=== PATIENT | female | born 1980 | race Caucasian/White ===

== ENCOUNTER → 2021-09-24 13:21 | Outpatient (CLI) | payer BC, SELFPAY ==
--- NOTE | ~2021-09-24 | US_ITS ---
EXAMINATION: US pelvic complete w TV DATE: 09/24/2021 13:59 INDICATION: Abnormal uterine bleeding. TECHNIQUE: Multiple transabdominal and transvaginal sonographic images of the pelvis were obtained. COMPARISON: None. FINDINGS: TRANSABDOMINAL ULTRASOUND: The uterus is retroflexed and measures 8.8 x 4.7 x 5.3 cm. There is no free fluid in the pelvis. TRANSVAGINAL ULTRASOUND: The endometrial complex measures 5 mm in thickness. The right ovary measures 3.0 x 3.0 x 2.5 cm. Ther e is a 2.3 cm hemorrhagic cyst in right ovary. The left ovary measures 2.3 x 0.9 x 2.1 cm. There is n ormal vascular flow in the ovaries. IMPRESSION: 1. No etiology for abnormal uterine bleeding. Reviewed, dictated and finalized at location B. [facility] INSERTER
== END ==
DX: N93.9 Abnormal uterine and vaginal bleeding, unspecified (principal)
CPT/HCPCS: 76830; 76856

== ENCOUNTER → 2021-11-24 15:53 | Outpatient (CLI) | payer BC, SELFPAY ==
--- NOTE | ~2021-11-24 | US_ITS ---
EXAMINATION: US transvaginal DATE: 11/24/2021 16:19 INDICATION: Follow-up right ovarian cyst. Comparison:Ultrasound dated 09/24/2021 TECHNIQUE: Multiple endovaginal sonographic images of the pelvis performed. FINDINGS: The uterus measures 7.1 x 3.9 x 4.9 cm. The endometrial complex measures 3 mm. The right ovary measures 3.7 x 1.8 x 2.8 cm and the left ovary measures 2.1 x 1.2 x 1.7 cm. There ar e small follicles in each ovary. Normal doppler signal in both ovaries. There is no free fluid in the pelvis. There are no abnormal masses seen on either side. IMPRESSION: 1. Unremarkable pelvic ultrasound. Interval resolution of right ovarian cyst. Reviewed, dictated and finalized at location B.
== END ==
DX: N83.201 Unspecified ovarian cyst, right side (principal)
CPT/HCPCS: 76830

== ENCOUNTER → 2023-04-21 12:09 | Outpatient (CLI) | payer BC, SELFPAY ==
--- NOTE | ~2023-04-21 | MM_ITS ---
EXAMINATION: MM screening caden BI w nora HISTORY: Baseline screening mammogram TECHNIQUE: Craniocaudal and mediolateral oblique 3-D tomosynthesis images were obtained and synthetic 2-D images were generated. CAD analysis was submitted and interpreted. COMPARISON: None, baseline BREAST PARENCHYMAL COMPOSITION: There are scattered areas of fibroglandular density. FINDINGS: No suspicious mass, calcification, or architectural distortion are identified in either shay ast to suggest malignancy. IMPRESSION: 1. No mammographic evidence of malignancy. 2. Recommend routine screening mammography in one year. BI-RADS Category 1: Negative Reviewed, dictated and finalized at location A.
== END ==
PROVIDERS: PCP Family Medicine; Visit Provider Registered Nurse School
DX: Z12.31 Encounter for screening mammogram for malignant neoplasm of breast (principal)
CPT/HCPCS: 77063; 77067

== ENCOUNTER 2024-10-16 09:17 | Outpatient (CLI) | payer BC, SELFPAY ==
--- NOTE | ~2024-10-16 | MM_ITS ---
EXAMINATION: MM screening caden BI w nora HISTORY: Screening TECHNIQUE: Craniocaudal and mediolateral oblique 3-D tomosynthesis images were obtained and synthetic 2-D images were generated. CAD analysis was submitted and interpreted. COMPARISON: 04/21/2023 BREAST PARENCHYMAL COMPOSITION: Not dense: There are scattered areas of fibroglandular density. FINDINGS: There is no evidence of suspicious mass, calcification, or architectural distortion to sugg est malignancy in either breast. There has been no suspicious interval change. IMPRESSION: 1. No mammographic evidence of malignancy. 2. Recommend routine screening mammography in one year. BI-RADS Category 1: Negative Reviewed, dictated and finalized at location B. INE SHOP REPAIR TECHNICIAN
--- OUTSIDE RECORDS SUMMARY | 2024-10-16 09:53 | XMS_ITS | Clinical Summary ---
Author Organization [facility] Address [address] [place] [address]. [place] [address] [place] [address] Care Team Providers Care Toolroom Clerk Name Role Phone Dane Greene MD Primary Care Provider [phone] Allergies Active Allergy Reactions Criticality Noted Date Comments Amoxicillin Unknown 05/11/2018 Medications SLYND 4 MG Tab 04/27/2022 Acti ve naproxen (NAPROSYN) 500 MG tabletIndications :Acute right-sided low back pain without sciatica Take 1 tablet (500 mg total) by mouth 2 (two) times daily with meals. 180 tablet 3 03/14/2024 03/14/20 25 Active lisinopril (PRINIVIL) 20 MG tabletIndications :Primary hypertension Take 1 tablet (20 mg total) by mouth daily. 90 tablet 3 08/22/2024 08/22/20 25 Active cyclobenzaprine (FLEXERIL) 10 MG tabletIndications :Acute bilateral low back pain without sciatica Take 1 tablet (10 mg total) by mouth 3 (three) times daily as needed. 60 tablet 1 08/30/2024 Active Active Problems Problem Noted Date Diagnosed Date Primary hypertension 12/30/2021 Plantar fasciitis, bilateral 07/05/2019 Gastroesophageal reflux disease without esophagi tis 05/11/2018 Resolved Problems Problem Noted Date Diagnosed Date Resolved Date Atypical pneumonia 06/29/2018 0 Impingement syndrome of shoulder 05/11/2018 05/04/2022 TFCC (triangular fibrocartil age complex) injury 05/11/2018 04/30/2020 Encounter for preventive health examination 04/24/2018 04/30/2020 Encounters Date Type Department Care Team Description 09/18/2024 Telephone [facility] [address], [address] [place] [phone] Dane Greene MD Problem 09/10/2024 Telephone [facility] [address], [address] [place] [phone] Dane Greene MD Lab Results (Vitamin D, C-reactive, Dhea sulfate, Cortisol total, TSH, Uric acid, CK, Protein elecrophoresis, CBC, BMP) 08/30/2024 1:00 PM SECOND BUTLER Office Visit [facility] [address], [address] [place] [phone] Dane Greene MD Back Pain (Pt stated that she was bending over to put a bag in the trash can on Tuesday after and she felt her back tense up. She's having gait difficulty, and went to see her Chiropractor. She also notice that most of her joints feel inflamed . ) 08/30/2024 Travel from Last 3 Months Immunizations Name Administration Dates Next Due Dtp 01/03/1986, 2,06/17/1981,1980,02/11/1981 Influenza Adult (Generic) 05/18/2023,05/19/2022, 05/20/2021 MMR 01/24/1991,04/17/1982 Opv 01/03/1986, 2,06/17/1981,1980,02/11/1981 PFIZER COVID-19 (ORTEZ CAP), MRNA, LNP-S, PF, 30 MCG/0.3 ML ORIN-SUCROSE, IM 12/30/2021 PFIZER COVID-19 (ORIGINAL FORMULATION, PURPLE CAP) mRNA, LNP-S, PF, 30 MCG/0.3 ML DOSE 12/28/2020,12/07/2020 Td (Tenivac) preservative free 04/30/2020 Td, Adsorbed, Preservative F ree, Adult Use, Lf Unspecified 04/30/2020 Tdap (Generic) 01/29/2010 Tetanus/Diptheria 04/22/1995 Family History Medical History Relation Comments Hypertension Mother Diabetes Other Relation Status Comments Mother Other Social History Tobacco Use Types Packs/Day Years Used Date Smoking Tobacco: Never Passive Smoke Exposure: Never Smokeless Tobacco: Never Tobacco Cessation:Counseling Given: No Alcohol Use Standard Drinks/Week Comments Not Currently 0 (1 standard drink = 0.6 oz pur e alcohol) socially PHQ-2 Answer Date Recorded Patient Health Questionnaire-2 Score 0 08/30/2024 Comments No Sex and Gender Information Value Date Recorded Sex Assigned at Not on file Legal Sex Female 5:29 PM CDT Gender Identity Not on file Sexual Orientation Not on file Last Filed Vital Signs Vital Sign Reading Time Taken Comments Blood Pressure 120/72 08/30/2024 1:04 PM SECOND BUTLER Pulse 86 08/30/2024 1:04 PM SECOND BUTLER Temperature 36.4 ??C (97.6 ??F) 08/30/2024 1:04 PM CS T Respiratory Rate 16 08/30/2024 1:04 PM SECOND BUTLER Oxygen Saturation 99% 08/30/2024 1:04 PM SECOND BUTLER Inhaled Oxygen Concentration - - Weight 74.8 kg (165 lb) 08/30/2024 1:04 PM SECOND BUTLER Height 160 cm (5' 3 ) 08/30/2024 1:04 PM SECOND BUTLER Body Mass Index 29.23 08/30/2024 1:04 PM SECOND BUTLER Plan of Treatment Health Maintenance Due Date Last Done Comments Hepatitis B Vaccines (1 of 3 - 19+ 3-dose series) 12/24/1999 Cervical Cancer Screening Pap Smear (Age 30 to 64) Every 3 Years 03/12/2021 03/12/2018 COVID-19 Vaccine ( season) 2024 12/30/2021, 12/28/2020, 12/07/2020 Influenza Adult (#1) 2024 05/18/2023, 05/19/2022, 05/20/2021 PHQ-2 (Physician [place]) 09/12/2024 08/30/2024 Annual Physical 03/14/2025 03/14/2024, 05/13, 05/04/2022, Additional history exists Mammogram Screening 04/21/2025 04/21/2023 Cervical Cancer Screening Pap with HPV Testing (Age 30 to 64) Every 5 Years 05/14/2027 05/14/2022 Cervical Cancer Screening with HPV 05/14/2027 DTaP, Tdap and Td Vaccines (5 - Td or Tdap) 04/30/2030 04/30/2020, 04/30/2020, 01/29/2010, Additional history exists Hepatitis C Completed 03/14/2024 HPV Vaccines Aged Out No longer eligi ble based on patient's age to complete this topic Meningococcal B Vaccine Aged Out No l onger eligible based on patient's age to complete this topic Meningococcal Vaccine Aged Out No jethro gertrude eligible based on patient's age to complete this topic Pneumococcal Vaccine: Pediatrics (0 to 5 Years) and At-Risk Patients (6 to 64 Years) Aged Out No longer eligible based on patient's age to complete this topic RSV Immunizations Under 20 Months Aged Out No longer eligible based on patient's age to complete this topic Procedures Procedure Name Priority Date/Time Associated Diagnosis Comments VITAMIN D, 25 OH Routine 09/01/2024 9:48 AM SECOND BUTLER URIC ACID BLOOD Routine 09/01/2024 9:48 AM SECOND BUTLER Primary hypertension Arthralgia, unspecified joint Myalgia Generalized abdominal pain Overweight Gastroesophageal reflux disease without esophagitis Acute bilateral low back pain without sciatica Vitamin D deficiency IRON SAT PANEL (IRON,IBC,%SAT) Routine 09/01/2024 9:48 AM SECOND BUTLER Primary hypertension Arthralgia, unspecified joint Myalgia Generalized abdominal pain Overweight Gastroesophageal reflux disease without esophagitis Acute bilateral low back pain without sciatica Vitamin D deficiency PROTEIN, ELECTROPHORESIS Routine 09/01/2024 9:48 AM SECOND BUTLER Primary hypertension Arthralgia, unspecified joint Myalgia Generalized abdominal pain Overweight Gastroesophageal reflux disease without esophagitis Acute bilateral low back pain without sciatica Vitamin D deficiency TSH W/REFLEX Routine 09/01/2024 9:48 AM SECOND BUTLER Primary hypertension Arthralgia, unspecified joint Myalgia Generalized abdominal pain Overweight Gastroesophageal reflux disease without esophagitis Acute bilateral low back pain without sciatica Vitamin D deficiency SED RATE, ERYTHROCYTE (ESR) Routine 09/01/2024 9:48 AM SECOND BUTLER Primary hypertension Arthralgia, unspecified joint Myalgia Generalized abdominal pain Overweight Gastroesophageal reflux disease without esophagitis Acute bilateral low back pain without sciatica Vitamin D deficiency RHEUMATOID FACTOR, QUANT Routine 09/01/2024 9:48 AM SECOND BUTLER Primary hypertension Arthralgia, unspecified joint Myalgia Generalized abdominal pain Overweight Gastroesophageal reflux disease without esophagitis Acute bilateral low back pain without sciatica Vitamin D deficiency ANTINUCLEAR ANTIBODY WI RFX Routine 09/01/2024 9:48 AM SECOND BUTLER Primary hypertension Arthralgia, unspecified joint Myalgia Generalized abdominal pain Overweight Gastroesophageal reflux disease without esophagitis Acute bilateral low back pain without sciatica Vitamin D deficiency BASIC METABOLIC PANEL Routine 09/01/2024 9:48 AM SECOND BUTLER Primary hypertension Arthralgia, unspecified joint Myalgia Generalized abdominal pain Overweight Gastroesophageal reflux disease without esophagitis Acute bilateral low back pain without sciatica Vitamin D deficiency CBC W/DIFF AUTOMATED Routine 09/01/2024 9:48 AM SECOND BUTLER Primary hypertension Arthralgia, unspecified joint Myalgia Generalized abdominal pain Overweight Gastroesophageal reflux disease without esophagitis Acute bilateral low back pain without sciatica Vitamin D deficiency CK (CPK) Routine 09/01/2024 9:48 AM SECOND BUTLER Primary hypertension Arthralgia, unspecified joint Myalgia Generalized abdominal pain Overweight Gastroesophageal reflux disease without esophagitis Acute bilateral low back pain without sciatica Vitamin D deficiency DHEA-SULFATE Routine 09/01/2024 9:48 AM SECOND BUTLER Primary hypertension Arthralgia, unspecified joint Myalgia Generalized abdominal pain Overweight Gastroesophageal reflux disease without esophagitis Acute bilateral low back pain without sciatica Vitamin D deficiency C-REACTIVE PROTEIN Routine 09/01/2024 9: 48 AM SECOND BUTLER Primary hypertension Arthralgia, unspecified joint Myalgia Generalized abdominal pain Overweight Gastroesophageal reflux disease without esophagitis Acute bilateral low back pain without sciatica Vitamin D deficiency CORTISOL, TOTAL Routine 09/01/2024 9:48 AM SECOND BUTLER Primary hypertension Arthralgia, unspecified joint Myalgia Generalized abdominal pain Overweight Gastroesophageal reflux disease without esophagitis Acute bilateral low back pain without sciatica Vitamin D deficiency HEPATITIS C ANTIBODY W/RFX TO HCV RNA Routine 03/14/2024 10:25 AM CDT Healthcare maintenance Primary hypertension Acute right-sided low back pain without sciatica Lumbar radiculopathy Screening for diabetes mellitus Screening cholesterol level Screening for diabetes mellitus (DM) Need for hepatitis C screening test MAMMOGRAM GENERIC (SCAN ORDER) 04/21/2023 OUTSIDE CYTOPATH CERV/VAG INTERPRET (PAP) 05/14/2022 CYTOPATH CERV/VAG THIN LAYER Routine 03/12/2018 12:00 AM CDT from Last 3 Months or Most Recently Relevant to Health Maintenance Results * TSH W/REFLEX (09/01/2024 9:48 AM SECOND BUTLER) TSH 0.97 mIU/L [employer] [facility] Comment: ?Reference Range ?> or = 20 Years ??0.40-4.50 ? Ranges ?First trimester ?0.26-2.66 ?Second trimester ?? 0.55-2.73 ?Third trimester ?0.43-2.91 09/01/2024 9:48 AM SECOND BUTLER 09/01/2024 9:50 AM SECOND BUTLER Narrative [facility] [place] [facility] - 09/08/2024 9:35 PM SECOND BUTLER FASTING:YES FASTING: YES Resulting Agency Comment Performing Organization Information: ?Site ID: [place] ?Name: [facility] ?Address: [address] [phone] ?Director: Iraj Hooker MD Dane Greene MD LABORATORY Final Result [facility] [place] [facility] [facility] [address] [address], [place] * ANTINUCLEAR ANTIBODY WI RFX (09/01/2024 9:48 AM SECOND BUTLER) HERLINDA COMMENT NEGATIVE NEGATIVE [facility] [facility] Comment: A negative HERLINDA Multiplex indicates the absence of detectable antibodies to component analytes consisting of double stranded DNA (dsDNA), chromatin, ribonucleoprotein (HELP DESK ASSOCIATE), Melton/HELP DESK ASSOCIATE (Sm/HELP DESK ASSOCIATE), Melton (Sm), SS-A, SS-B, Yolie-1, centromere B, Scl-70 and ribosomal P. A negative result should be interpreted in the context of the clinical and laboratory findings and does not rule out autoimmune disease characterized by other autoantibody specificities such as rheumatoid arthritis, autoimmune hepatitis, primary biliary cirrhosis, autoimmune thyroiditis, Mckean's disease, pernicious anemia, autoimmune neuropathies, vasculitis, celiac disease, and bullous disease. For additional information, please refer to http://education.[employer]/faq/FKF972 (This link is being provided for informational/ educational purposes only.) ?? 09/01/2024 9:48 AM SECOND BUTLER 09/01/2024 9:50 AM SECOND BUTLER Narrative [facility] [place] [facility] - 09/08/2024 9:35 PM SECOND BUTLER FASTING:YES FASTING: YES Resulting Agency Comment Performing Organization Information: ?Site ID: [place] ?Name: [facility] ?Address: [address] [address] ?Director: Iraj Hooker MD Dane Greene MD LABORATORY Final Result Performing Organization Address [facility]/ZIP Co de Phone Number [facility] [place] [facility] [employer] [facility] [address] [place] [address], * RHEUMATOID FACTOR, QUANT (09/01/2024 9:48 AM SECOND BUTLER) RHEUMATOID FACTOR <10 <14 IU/mL [facility] 09/01/2024 9:48 AM SECOND BUTLER 09/01/2024 9:50 AM SECOND BUTLER Narrative [facility] [place] [facility] - 09/08/2024 9:35 PM SECOND BUTLER FASTING:YES FASTING: YES Resulting Agency Comment Performing Organization Information: ?Site ID: [place] ?Name: [facility] ?Address: [address] [place], [place] [address] [address] ?Director: Iraj Hooker MD Dane Greene MD LABORATORY Final Result Performing Organization Address City/[facility] Co de Phone Number [facility] [place] [employer] [facility] [address] [facility] [place] [place] [address], * (ABNORMAL) IRON SAT PANEL (IRON,IBC,%SAT) (09/01/2024 9:48 AM SECOND BUTLER) Pathologist [facility] IRON 71 40 - 190 mcg/dL [facility] IRON BINDING CAPACITY 246(L) 250 - 450 mcg/dL (calc) [facility] % IRON SATURATION 29 16 - 45 % (calc) [facility] 09/01/2024 9:48 AM SECOND BUTLER 09/01/2024 9:50 AM SECOND BUTLER Narrative [facility] [facility] [place] - 09/08/2024 9:35 PM SECOND BUTLER FASTING:YES FASTING: YES Resulting Agency Comment Performing Organization Information: ?Site ID: [place] ?Name: [facility] ?Address: [address] [place], [place] [address] [address] ?Director: Iraj Hooker MD Dane Greene MD LABORATORY Final Result Performing Organization Address City/[facility] Co de Phone Number [facility] [place] [facility] [employer] [facility] [address] [facility] [place] [place] [address], * CORTISOL, TOTAL (09/01/2024 9:48 AM SECOND BUTLER) CORTISOL 11.3 mcg/dL [facility] Comment: Reference Range: For 8 a.m.(7-9 a.m.) Specimen: 4.0-22.0 Reference Range: For 4 p.m.(3-5 p.m.) Specimen: 3.0-17.0 ??* Please interpret above results accordingly * 09/01/2024 9:48 AM SECOND BUTLER 09/01/2024 9:50 AM SECOND BUTLER Narrative [facility] [place] [facility] - 09/08/2024 9:35 PM SECOND BUTLER FASTING:YES FASTING: YES Resulting Agency Comment Performing Organization Information: ?Site ID: [place] ?Name: [facility] ?Address: [address] [place], [place] [address] [address] ?Director: Iraj Hooker MD Dane Greene MD LABORATORY Final Result Performing Organization Address [facility] de Phone Number [employer] [place] [place] [employer] [facility] [id number] [place] [address] [place] [address] * SED RATE, ERYTHROCYTE (ESR) (09/01/2024 9:48 AM SECOND BUTLER) Pathologist [facility] SED RATE 14 < OR = 20 mm/h [facility] 09/01/2024 9:48 AM SECOND [facility]LER 09/01/2024 9:50 AM SECOND BUTLER Narrative [facility] [place] [facility] - 09/08/2024 9:35 PM SECOND BUTLER FASTING:YES FASTING: YES Resulting Agency Comment Performing Organization Information: ?Site ID: [place] ?Name: [facility] ?Address: [address] [place], [place] [address] [place] [address] ?Director: Iraj Hooker MD Dane Greene MD LABORATORY Final Result Performing Organization Address [facility] de Phone Number [employer] [facility] [employer] [facility] [address] [place] [address] * BASIC METABOLIC PANEL (09/01/2024 9:48 AM SECOND BUTLER) GLUCOSE 83 65 - 99 mg/dL [facility] Comment: ? Fasting reference interval BUN 14 7 - 25 mg/dL [facility] CREATININE S/P/B 0.61 0.50 - 0.99 mg/dL [facility] GFR ESTIMATE 114 > OR = 60 mL/min/1. 73m2 [facility] BUN CREATININE RATIO SEE NOTE: (calc) [facility] Comment: ?? Not Reported: BUN and Creatinine are within ?? reference range. ? SODIUM S/P/B 139 135 - 146 mmol/L [facility] POTASSIUM S/P/B 4.1 3.5 - 5.3 mmol/L [facility] CHLORIDE S/P/B 106 98 - 110 mmol/L [facility] CO2 25 20 - 32 mmol/L [employer] [facility] CALCIUM S/P/B 8.8 8.6 - 10.2 mg/dL [facility] 09/01/2024 9:48 AM SECOND BUTLER 09/01/2024 9:50 AM SECOND BUTLER Narrative [facility] [facility] [place] - 09/08/2024 9:35 PM SECOND BUTLER FASTING:YES FASTING: YES Resulting Agency Comment Performing Organization Information: ?Site ID: [place] ?Name: [facility] ?Address: [address] [place] [address] ?Director: Iraj Hooker MD us Dane Greene MD LABORATORY Final Result [facility] - [place] [facility] [address] [place], [place] [address] * DHEA-SULFATE (09/01/2024 9:48 AM SECOND BUTLER) DHEA SULFATE 189 15 - 205 mcg/dL [facility] 09/01/2024 9:48 AM SECOND BUTLER 09/01/2024 9:50 AM SECOND BUTLER Narrative [facility] [employer] [facility] [place] - 09/08/2024 9:35 PM SECOND BUTLER FASTING:YES FASTING: YES Resulting Agency Comment Performing Organization Information: ?Site ID: [place] ?Name: [facility] ?Address: [facility] [place] [address] ?Director: Iraj Hooker MD Dane Greene MD LABORATORY Final Result Performing Organization Address [facility] de Phone Number [facility] [place] [employer] [facility] [address] [place], [place] [id number] [place] [address] * C-REACTIVE PROTEIN (09/01/2024 9:48 AM SECOND BUTLER) Pathologist [facility] C-REACTIVE PROTEIN 7.7 <8.0 mg/L [facility] 09/01/2024 9:48 AM SECOND BUTLER 09/01/2024 9:50 AM SECOND BUTLER Narrative [facility] - 09/08/2024 9:35 PM SECOND BUTLER FASTING:YES FASTING: YES Resulting Agency Comment Performing Organization Information: ?Site ID: [place] ?Name: [facility] ?Address: [facility] [place] [address] ?Director: Iraj Hooker MD Dane Greene MD LABORATORY Final Result Performing Organization Address [facility] de Phone Number [employer] [place] [employer] [facility] [address] [place], [place] [id number] [place] [address] * (ABNORMAL) CBC W/DIFF AUTOMATED (09/01/2024 9:48 AM SECOND BUTLER) Pathologist [facility] WBC 6.1 3.8 - 10.8 Thousand/u L [employer] [facility] RBC 4.26 3.80 - 5.10 Million/uL [facility] [facility] HGB 13.1 11.7 - 15.5 g/dL [employer] [facility] HCT 39.8 35.0 - 45.0 % [employer] [facility] [place] MCV 93.4 80.0 - 100.0 fL [employer] [facility] MCH 30.8 27.0 - 33.0 pg [employer] [facility] MCHC 32.9 32.0 - 36.0 g/dL [facility] [place] Comment: For adults, a slight decrease in the calculated MCHC value (in the range of 30 to 32 g/dL) is most likely not clinically significant; however, it should be interpreted with caution in correlation with other red cell parameters and the patient's clinical condition. RDW 11.7 11.0 - 15.0 % [facility] PLT 189 140 - 400 Thousand/u L [employer] [facility] MPV 11.2 7.5 - 12.5 fL [facility] ABS. NEUTROPHILS 3,697 1,500 - 7,800 cells/uL [facility] ABS. LYMPHOCYTES 1,525 850 - 3,900 cells/uL [facility] ABS. MONOCYTES 299 200 - 950 cells/uL [facility] ABS. EOSINOPHILS 561(H) 15 - 500 cells/uL [facility] ABS. BASOPHILS 18 0 - 200 cells/uL [employer] [facility] SEG NEUTROPHILS 60.6 % [facility] LYMPHOCYTES 25.0 % [employer] [facility] MONOCYTES 4.9 % [employer] [facility] EOSINOPHILS 9.2 % [employer] [facility] BASOPHILS 0.3 % [employer] [facility] 09/01/2024 9:48 AM SECOND BUTLER 09/01/2024 9:50 AM SECOND BUTLER Narrative [employer] [place] - 09/08/2024 9:35 PM SECOND BUTLER FASTING:YES FASTING: YES Resulting Agency Comment Performing Organization Information: ?Site ID: [place] ?Name: [facility] ?Address: [address] [place] [address] ?Director: Iraj Hooker MD us Dane Greene MD LABORATORY Final Result [facility] [facility] [place] [employer] [facility] [address] [place] [address], [place] * (ABNORMAL) PROTEIN, ELECTROPHORESIS (09/01/2024 9:48 AM SECOND BUTLER) TOTAL PROTEIN S/P/B 6.1 6.1 - 8.1 g/dL [employer] [facility] ALBUMIN ELECTROPHORESIS S/P/B 3.9 3.8 - 4.8 g/dL [facility] [id number] S/P/B 0.3 0.2 - 0.3 g/dL [facility] [id number] S/P/B 0.7 0.5 - 0.9 g/dL [facility] BETA 1 GLOBULIN S/P/B 0.4 0.4 - 0.6 g/dL [facility] BETA 2 GLOBULIN S/P/B 0.3 0.2 - 0.5 g/dL [facility] GAMMA GLOBULIN S/P/B 0.6(L) 0.8 - 1.7 g/dL [facility] INTERPRETATION [facility] Comment: Hypogammaglobulinemia may be seen in early or evolving lymphoproliferative disorders, acquired or congenital immune deficiencies, immunosuppressive therapy and light chain disease. Consider urine protein electrophoresis, urine immunofixation and/or free light chains if clinically indicated. 09/01/2024 9:48 AM SECOND BUTLER 09/01/2024 9:50 AM SECOND BUTLER Narrative [facility] - 09/08/2024 9:35 PM SECOND BUTLER FASTING:YES FASTING: YES Resulting Agency Comment Performing Organization Information: ?Site ID: [place] ?Name: [facility] ?Address: [address] [address] ?Director: Iraj Hooker MD Dane Greene MD LABORATORY Final Result [facility] [place] [address] [address], * VITAMIN D, 25 OH (09/01/2024 9:48 AM SECOND BUTLER) VITAMIN D 25 HYDROXY TOTAL S/P/B 34.9 >29.9 ng/mL [facility] Comment: This test was developed and its analytical performance characteristics have been determined by [facility] at [facility]. It has not been cleared or approved by the U.S. Food and Drug Administration. This assay has been validated pursuant to the CLIA regulations and is used for clinical purposes. Vitamin D, 25-Hydroxy reports concentrations of two common forms, 25-OHD2 and 25-OHD3. 25-OHD3 indicates both endogenous production and supplementation. 25-OHD2 is an indicator of exogenous sources, such as diet or supplementation. Therapy is based on measurement of Total 25-OHD, with levels <20 ng/mL indicative of Vitamin D deficiency, while levels between 20 ng/mL and 30 ng/mL suggest insufficiency. Optimal levels are >=30 ng/mL. Vitamin D, 25-Hydroxy reports concentrations of two common forms, 25-OHD2 and 25-OHD3. 25-OHD3 indicates both endogenous production and supplementation. 25-OHD2 is an indicator of exogenous sources, such as diet or supplementation. Therapy is based on measurement of Total 25-OHD, with levels <20 ng/mL indicative of Vitamin D deficiency, while levels between 20 ng/mL and 30 ng/mL suggest insufficiency. Optimal levels are > or = 30 ng/mL. VITAMIN D 25 HYDROXY D3 S/P/B 34.9 ng/mL [id number] Comment: This test was developed and its analytical performance characteristics have been determined by [employer]. It has not been cleared or approved by the FDA. This assay has been validated pursuant to the CLIA regulations and is used for clinical purposes. VITAMIN D 25 HYDROXY D2 S/P/B <1.0 ng/mL [facility] Comment: This test was developed and its analytical performance characteristics have been determined by [employer]. It has not been cleared or approved by the FDA. This assay has been validated pursuant to the CLIA regulations and is used for clinical purposes. 09/01/2024 9:48 AM SECOND BUTLER 09/01/2024 9:50 AM SECOND BUTLER Narrative [facility] - IR[place] ORDERS - 09/08/2024 9:35 PM SECOND BUTLER FASTING:YES FASTING: YES Resulting Agency Comment Performing Organization Information: ?Site ID: [id number] ?Name: [employer] ?Address: [address] [place] [address], [address] [place] [address] ?Director: Thomas Fernandes PhD,[facility] Dane Greene MD LABORATORY Final Result [employer] - [place] ORDERS [facility] [address], [address] [place] [address], [place] * CK (CPK) (09/01/2024 9:48 AM SECOND BUTLER) TOTAL CK 45 29 - 143 U/L [facility] 09/01/2024 9:48 AM SECOND BUTLER 09/01/2024 9:50 AM SECOND BUTLER Narrative [facility] - [place] ORDERS - 09/08/2024 9:35 PM SECOND BUTLER FASTING:YES FASTING: YES Resulting Agency Comment Performing Organization Information: ?Site ID: [id number] ?Name: [employer] ?Address: [address] [place], [place] [address] [address] ?Director: Iraj Hooker MD Dane Greene MD LABORATORY Final Result Performing Organization Address [facility] de Phone Number [employer] - IRIS MARYA [employer] [facility] [id number] [place] [address] [place] [address], * URIC ACID BLOOD (09/01/2024 9:48 AM SECOND BUTLER) Pathologist [facility] URIC ACID 3.5 2.5 - 7.0 mg/dL [facility] [employer] [facility] Comment: Therapeutic target for gout patients: <6.0 mg/dL ?? 09/01/2024 9:48 AM SECOND BUTLER 09/01/2024 9:50 AM SECOND BUTLER Narrative [facility] [facility] - [place] ORDERS - 09/08/2024 9:35 PM SECOND BUTLER FASTING:YES FASTING: YES Resulting Agency Comment Performing Organization Information: ?Site ID: [id number] ?Name: [employer] ?Address: [address] [place], [place] [address] [place] [address] ?Director: Iraj Hooker MD Dane Greene MD LABORATORY Final Result Performing Organization Address [facility]/ZIP Co de Phone Number [facility] - [facility] [employer] [facility] [address] [place] [address], [place] * HEPATITIS C ANTIBODY W/RFX TO HCV RNA (03/14/2024 10:25 AM CDT) HEPATITIS C AB NON-REACT MAXIMILIAN NON-REACT MAXIMILIAN [employer] [facility] Comment: HCV antibody was non-reactive. There is no laboratory evidence of HCV infection. In most cases, no further action is required. However, if recent HCV exposure is suspected, a test for HCV RNA (test code 90678) is suggested. For additional information please refer to http://education.VSporto/faq/WQG50k4 (This link is being provided for informational/ educational purposes only.) 03/14/2024 10:2 5 AM CDT 03/14/2024 10:27 AM CDT Narrative [employer] - [place] ORDERS - 03/16/2024 3:05 PM CDT FASTING:YES FASTING: YES Resulting Agency Comment Performing Organization Information: ?Site ID: [id number] ?Name: [facility] ?Address: [address] [place] [address] ?Director: Iraj Hooker MD Dane Greene MD LABORATORY Final Result [facility] - IRIS MARYA [employer] [facility] [id number] [place] [address], [place] * MAMMOGRAM GENERIC (04/21/2023) Anatomical Region Laterality Modality Other 04/21/2023 [facility] Scanned SCANNING Final Resu lt * PAP SMEAR WITH HPV (05/14/2022) 05/14/2022 Narrative 05/14/2022 Ordered by an unspecified provider. us Documents Scanned SCANNING Final Result * Cytopath Cerv/Vag Thin Layer (03/12/2018 12:00 AM CDT) PAP SMEAR Normal per patient [facility] TO EPIC CONVERSION 03/12/2018 03/12/2018 us Generic Conversion Md [facility] PATH[facility]/CYTOLOGY JEN TURNER Final Result [facility] TO EPIC CONVERSION from Last 3 Months or Most Recently Relevant to Health Maintenance Insurance [facility] Care Teams Toolroom Clerk Relationship Specialty Start Date End Date Dane Greene MD [address] [facility] [address] [place] [address] PCP - General FAMILY PRACTICE 05/11/18
--- OUTSIDE RECORDS SUMMARY | 2024-10-16 09:53 | XMS_ITS | Encounter Summary ---
Author Organization [facility] Address [address] [place] [address]. [place] [address] [place] [address] Care Team Providers Care Barrel Washer Name Role Phone Dane Greene MD Primary Care Provider [phone] Encounter Details Date Type Department Care Team (Late st Contact Info) Description 11/22/2022 MyCSiastot Message Enc [facility] Family Medicine - [place] [address] [facility], [address] [place] [phone] Dane Greene MD [address] [facility] [address] [place], [place] [id number] Marnie Kat - Schedule appointment or virtual appointment Social History Tobacco Use Types Packs/Day Years Used Date Smoking Tobacco: Never Smokeless Tobacco: Never Alcohol Use Standard Drinks/Week Comments Yes 0 (1 standard drink = 0.6 oz pur e alcohol) socially PHQ-2 Answer Date Recorded Patient Health Questionnaire-2 Score 0 11/22/2022 Comments No Sex and Gender Information Value Date Recorded Sex Assigned at Not on file Legal Sex Female 5:29 PM CDT Gender Identity Not on file Sexual Orientation Not on file COVID-19 Exposure Response Date Recorded In the last 10 days, have yo u been in contact with someone who was confirmed or suspected to have Coronavirus/COVID-19? No / Unsure 11/22/2022 1:13 PM CDT documented as of this encounter Plan of Treatment Not on file documented as of this encounter Visit Diagnoses Not on filedocumented in this encounter Additional Health Concerns Infection Onset Date Last Indicated Resolved Time COVID-19 Rule Out 03/22/2023 03/22/2023 03/22/2023 10:54 AM CDT Assessment Noted Time PHQ-9 Depression Total Score: 0 04/28/20 1:20 PM CDT documented as of this encounter Care Teams Barrel Washer Relationship Specialty Start Date End Date Dane Greene MD [address] [address] PCP - General FAMILY PRACTICE 05/11/18 documented as of this encounter
--- OUTSIDE RECORDS SUMMARY | 2024-10-16 09:53 | XMS_ITS | Continuity of Care Document ---
Author Organization [facility] Address [address] [address] Phone Care Team Providers Care Acid Cleaner Name Role Phone Cedrick Gerardo MD Unavailable Unavailable Allergies, Adverse Reactions, Alerts Substance Reaction Status Criticality amoxicillin Swelling Active No Information Medications Medication Instructions Dosage Effective Dates (start - stop) Status Comments mometasone 0.1 % topical ointment apply by topical route every day a thin layer to the affected area(s) for red/itchy skin on body Not Available - Active lisinopril 20 mg tablet take as directed - Active Slynd 4 mg (28) tablet take as directed - Active cyclobenzaprine 10 mg tablet take as directed - No Longer Active naproxen 500 mg tablet take as directed - No Longer Active Procedures Procedure Date Perc Test New (Level 4) OFFICE/OUTPATIENT VISIT KARATE TEACHER Registration Fee Advance Directives Directive Yes / No Effective Date File Name No Information Encounters Encounter Description Practice Location Reason(s) For Visit Diagnoses Date Provider Providers Copied on Encounter New (Level 4) OFFICE/OUTPA TIENT VISIT [facility], [address] [place] [address], [place], [place], [id number], [place] tel:[phone] [facility] abnormal labs (chief complaint) Body mass index (BMI) 29.0-29.9, adultEosinophili aAtopic dermatitisChest pain, unspecifiedPain in unspecified jointDrug reaction, initial encounter [address], [place], [address], [place]. tel:[phone] Referring Provider: Rachael Drake, [place], [address]. tel:[phone] [facility], [address] [place] [address], [id number], tel:[phone] [facility] No Information [address], [place], [address], [place]. tel:[phone] Referring Provider: Dane Greene, Rachael Bosch, [place], [address]. tel:[phone] [facility], [address] [place] [address], [id number], tel:[phone] [facility] Location No Information [facility] Prov. . Referring Provider: Rachael Drake, [place], [address]. tel:[phone] Family History Family Member Type Diagnosis Age At Onset Problem No family history of Asthma Mother Problem Rheumatoid arthritis Maternal grandmother Problem Rheumatoid arthritis Problem No family histor y of Systemic lupus erythematosus Sister Problem Rhinitis Payers Payer name Insurance type Covered republican ID Kirit breaux(s) [facility] [id number] Social History Type Description Quantity Date Captured Comments Alcohol Use Details Unknown Caffeine Use Details Unknown Tobacco Use Status No Information Smoking Status Never smoker Occupat ion: [employer] (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 Percentile Wt./Johnny. Percentile BMI percentile Pulse Ox Inhaled Ox 9:35 AM 64.00 in 77.111 kg (170.00 lbs) 29.1 8 kg/m eter (2) 94 /min 120/66 mm[Hg] 98.00 F 1.87 meter(2) 99 % Chief Complaint And Reason For Visit From encounter dated '09/27/2024 09:40'. abnormal labs (chief complaint). Description: Elevated Eosinophil CountThe patient reports “joint inflammation.? She reports elbow and knee swelling and stiffness. She has also had shoulder stiffness. These symptoms seem to be associated with panic attacks. She does not follow with anybody for these attacks.She reports having chest pains often. She also reports night sweats and nausea. No vomiting. She felt disoriented. She reports these occurred about 2 weeks ago after “throwing her back out.? This prompted the lab check. She was treated with steroids after this (completed course on 09/11/24). After 4 days on treatment, she felt back to normal. She denies no international travel in > 10 years. She reports mild rhinitis symptoms that have perhaps worsened as she has gotten older. She does not routinely use medications. She notes using albuterol with bronchitis (last episode 2022). She does have a history of eczema, which occurs on the nape of her neck. It worsens in the summer. It is patchy, itchy, and swollen. She has treated with HCT1% ointment with some improvement. She does moisturize with a lotion. She notes worsening rash after using hyaluronic acid. PMH: HTN (on ACEi), GERD (not on meds)PSH: section x 2, L shouldersurgeryMedication Allergies: Amoxicillin (PCN) - She reports leg swelling in childhood (believes she was 10 years old). She also had pruritus. She does not recall having any other symptoms.*She reports rashes after cold medications. FHRhinitis - sisterRA - mom, mat GMNo FH of asthma, SLESHTobacco: Never smokerOccupation: [employer] (at a [employer] - Office based work)Environmental HistoryLives in a house (built 1975) w/ central air/forced heat, w/ evidence of mold damage in the bathroom and water damage in the crawlspaceFlooring in Bedroom: hard jesus Pets: cats x 2DataI reviewed outside records available in the EMR09/01/24Abs Eos [id number] negativeESR 14Gamma Globulin 0.6 (L) Reason For Referral Reason For Referral No Information Plan Of Treatment Date Type Action Status Appointment Marnie Stephens 2 Mo F/up Q uest BOOKED Future Order: Lab Order Immunogl obulins Panel (IgA, IgE, IgG, IgM) (03125), Sent on: Sent Future Order: Lab Order TROPONIN I ([id number] ), Sent on: Sent Future Order: Lab Order CBC With Diff ([id number]), Sent on: Sent Future Order: Lab Order Comprehe nsive Metabolic Panel ([id number]), Sent on: Sent History Of Present Illness Encounter Date Complaint History Of Prese nt Illness abnormal labs Elevated Eosinop hil CountThe patient reports j oint inflammation. She reports elbow and knee swelling and stiffness. She has also had shoulder stiffness. These symptoms seem to be associated with panic attacks. She does not follow with anybody for these attacks.She reports having chest pains often. She also reports night sweats and nausea. No vomiting. She felt disoriented. She reports these occurred about 2 weeks ago after t hrowing her back out. This prompted the lab check. She was treated with steroids after this (completed course on 09/11/24). After 4 days on treatment, she felt back to normal. She denies no international travel in > 10 years. She reports mild rhinitis symptoms that have perhaps worsened as she has gotten older. She does not routinely use medications. She notes using albuterol with bronchitis (last episode 2022). She does have a history of eczema, which occurs on the nape of her neck. It worsens in the summer. It is patchy, itchy, and swollen. She has treated with HCT 1% ointment with some improvement. She does moisturize with a lotion. She notes worsening rash after using hyaluronic acid. PMH: HTN (on ACEi), GERD (not on meds)PSH: section x 2, L shoulder surgeryMedication Allergies: Amoxicillin (PCN) - She reports leg swelling in childhood (believes she was 10 years old). She also had pruritus. She does not recall having any other symptoms.*She reports rashes after cold medications. FHRhinitis - sisterRA - mom, nakia Delgado FH of asthma, SLESHTobacco: Never smokerOccupation: [employer] (at a [employer] - Office based work)Environmental HistoryLives in a house (built 1975) w/ central air/forced heat, w/ evidence of mold damage in the bathroom and water damage in the crawlspaceFlooring in Bedroom: hard jesus Pets: cats x 2DataI reviewed outside records available in the EMR09/01/24Abs Eos 561ANA negativeESR 14Gamma Globulin 0.6 (L) Functional Status Date Functional Assessmen t No Information Instructions Date Instruction Additional Infor dennis Skin Care Instructio ns====*Please use moisturizers on skin 4-6 times per day*Please bathe once per day. Soak for 20-30 minutes in lukewarm water. After bathing, dry off only partially by patting with a towel. Within 3 minutes, apply topical medication to red, itchy areas. Apply moisturizers to other areas*Use topical medications 1-2 times daily on flared (red/itchy) skin; you may use these topical medications twice weekly on healthy skin in locations that typically flare (ex: ankles, crook of elbow) to prevent flares====Products (as recommended to me by my patients):*Please try to use products that are scent-free or fragrance-free. Products labeled unscented sometimes use additives to neutralize a scent*Moisturizers: plain Vaseline (petrolatum or petroleum jelly), Cetaphil lotion, Aquaphor, or Vanicream*Laundry Detergents: Free & Clear labeled such as All or 7th Generation*Soaps: Dove Sensitive Skin Bar Soap, Vanicream bar soap, Cetaphil Cleanser Related to Atopic dermatitis Giving encouragement to exercise Related to Body mass index [BMI] 29.0-29.9, adult Assessments Type Assessment Date assessment Body mass index (BMI) 29.0-29.9, adult assessment Eosinophilia assessment Atopic dermatitis assessment Chest pain, unspecified 025 assessment Pain in unspecified joint assessment Drug reaction, initial encounter Patient Care Teams Name Effective Dates (start - stop) Status Members No Information
== END 2024-10-16 09:18 | disposition home or self-care (01) ==
PROVIDERS: PCP Family Medicine; Visit Provider Obstetrics & Gynecology
DX: Z12.31 Encounter for screening mammogram for malignant neoplasm of breast (principal)
CPT/HCPCS: 77063; 77067